=== PATIENT | female | born 1975 | race Caucasian/White ===

== ENCOUNTER 2021-10-01 15:36 | Outpatient (REF) | payer BC, SELFPAY ==
[2021-10-07 21:07] LABS: HPV mRNA E6/E7 Not Detected (Not Detected)
== END 2021-10-01 15:37 | disposition home or self-care (01) ==
LOC: HO.LAB 15:36
PROVIDERS: Visit Provider Internal Medicine
DX: Z12.4 Encounter for screening for malignant neoplasm of cervix (principal); Z11.51 Encounter for screening for human papillomavirus (HPV)
CPT/HCPCS: 87624; 88142

== ENCOUNTER 2021-10-08 08:43 | Outpatient (REF) | payer BC, SELFPAY ==
--- NOTE | ~2021-10-08 | XR_ITS ---
EXAMINATION: XR CHEST CLINICAL INFORMATION: Cough COMPARISON: None TECHNIQUE: 2 views of the chest were obtained. FINDINGS: No significant abnormality is noted involving the heart, lungs, mediastinum, bony thorax or soft tissues. XR/XR chest 2V IMPRESSION: No acute disease.
[2021-10-08 11:11] LABS: Hematocrit 33.8 % (37.0-47.0); Mean Corpuscular HGB Conc 29.6 g/dl (31.0-35.0); Mean Corpuscular Hemoglobin 22.4 pg (27.0-33.0); Mean Corpuscular Volume 75.8 fL (80.0-98.0); Mean Platelet Volume 9.1 fL (9.4-12.3); Platelet Count 401 X10*3/uL (160-400); Red Blood Count 4.46 X10*6/uL (4.20-5.50); Red Cell Distribution Width 18.6 % (11.0-16.0); White Blood Count 5.2 X10*3/uL (4.8-10.8)
[2021-10-08 11:12] LABS: Appearance Urine CLEAR; Color Urine YELLOW; Glucose Urine UA NEG (NEG); Leukocyte Esterase Urine NEG (NEG); Nitrite Urine NEG (NEG); Specific Gravity - Urine 1.015 (1.005-1.025); Urine Blood NEG (NEG); Urine Ketones NEG (NEG); Urine Protein NEG (NEG-TRACE)
[2021-10-08 11:50] LABS: Bacteria Urine TRACE /LPF; RBC Urine 0 /HPF (0); Squamous Epithelial Cell Urine 2+ /LPF; WBC Urine 0 /HPF (0-4)
[2021-10-08 11:51] LABS: Amorphous Sediment Urine 2+ /LPF
[2021-10-08 11:57] LABS: Alanine Aminotransferase 16 U/L (0-31); Albumin Level 4.2 g/dL (3.5-5.0); Alkaline Phosphatase 49 U/L (39-117); Anion Gap 9 (12-20); Aspartate Amino Transferase 23 U/L (5-31); Bilirubin Total 0.5 mg/dL (0.0-1.0); Blood Urea Nitrogen 13 mg/dL (9-16); Calcium 9.7 mg/dL (8.4-10.2); Carbon Dioxide 26 mmol/L (22-29); Chloride 106 mmol/L (96-108); Cholesterol 158 mg/dL; Estimated Glomerular Filt Rate > 60; Glucose Fasting 153 mg/dL (60-99); HDL Cholesterol 63 mg/dL; LDL Cholesterol Calculated 82 mg/dl; Potassium 5.2 mmol/L (3.3-5.1); Sodium 136 mmol/L (135-145); Total Protein 7.1 g/dL (6.5-8.0); Triglycerides 69 mg/dL
== END 2021-10-08 08:44 | disposition home or self-care (01) ==
LOC: HO.HMGCX 08:43
PROVIDERS: PCP Internal Medicine; Visit Provider Internal Medicine
DX: Z00.00 Encounter for general adult medical examination without abnormal findings (principal); R05.9 Cough, unspecified
CPT/HCPCS: 36415; 71046; 80053; 80061; 81001; 84443; 85027

== ENCOUNTER 2021-10-15 07:08 | Outpatient (REF) | payer BC, SELFPAY ==
[2021-10-15 12:00] LABS: Estimated Average Glucose 120 mg/dL; Hemoglobin A1c % 5.8 %
[2021-10-15 12:16] LABS: Iron 34 mcg/dL (30-160); Percent Iron Saturation 7 % (15-50); Total Iron Binding Capacity 492 mcg/dL (228-428); Unsaturated Iron Binding 458 ug/dL
== END 2021-10-15 07:09 | disposition home or self-care (01) ==
LOC: HO.HMGCLDS 07:08
PROVIDERS: Visit Provider Internal Medicine
DX: D64.9 Anemia, unspecified (principal); R73.9 Hyperglycemia, unspecified
CPT/HCPCS: 36415; 83036; 83540

== ENCOUNTER 2021-11-18 08:49 | Outpatient (REF) | payer BC, SELFPAY ==
--- NOTE | ~2021-11-18 | US_ITS ---
EXAMINATION: US RETROPERITONEAL LIMITED (RENAL ONLY) CLINICAL INFORMATION: Calculus of kidney. COMPARISON: Chest radiographs 10/08/2021. TECHNIQUE: Real-time imaging of the kidneys. FINDINGS: RIGHT KIDNEY: 10.9 x 3.7 x 5.7 cm (SAG x AP x TRV). The kidney is normal in size, contour, and echogenicity. Renal cortical thickness is normal. No visible calculi or focal parenchymal lesions. No hydronephrosis. LEFT KIDNEY: 9.7 x 5.2 x 4.7 cm (SAG x AP x TRV). The kidney is normal in size, contour, and echogenicity. Renal cortical thickness is normal. No focal parenchymal lesions or hydronephrosis. There is a punctate specular echo lower pole 03 cm but without posterior shadowing or twinkling artifact on color Doppler to confirm nonobstructing calculus. US/US renal BI IMPRESSION: -No hydronephrosis or caliectasis. -No definite calculi by strict ultrasound criteria.
== END 2021-11-18 08:50 | disposition home or self-care (01) ==
LOC: HO.HMGCX 08:49
PROVIDERS: PCP Internal Medicine; Visit Provider Internal Medicine
DX: N20.0 Calculus of kidney (principal)
CPT/HCPCS: 76775

== ENCOUNTER 2022-06-17 14:47 | Outpatient (REF) | payer BC, SELFPAY ==
[2022-06-17 16:41] LABS: MANUAL DIFF FLAG NO
[2022-06-17 16:49] LABS: Basophils Percent Auto 0.5 % (0-2); Eosinophils Absolute Auto 0.1 X10*3/uL (0.0-0.4); Hematocrit 43.1 % (37.0-47.0); Hemoglobin 14.3 g/dl (12.0-16.0); Imm Gran Abs Auto 0.03 X10*3/uL (0.00-0.03); Imm Gran Pct Auto 0.4 % (0.0-0.4); Lymphocytes Absolute Auto 1.1 X10*3/uL (1.2-4.9); Lymphocytes Percent Auto 12.9 % (20-40); Mean Corpuscular HGB Conc 33.2 g/dl (31.0-35.0); Mean Corpuscular Hemoglobin 32.2 pg (27.0-33.0); Mean Corpuscular Volume 97.1 fL (80.0-98.0); Mean Platelet Volume 8.8 fL (9.4-12.3); Monocytes Absolute Auto 0.7 X10*3/uL (0.1-1.2); Neutrophils Absolute Auto 6.2 x10*3/uL (2.0-8.3); Neutrophils Percent Auto 76.2 % (45-73); Platelet Count 350 X10*3/uL (160-400); Red Blood Count 4.44 X10*6/uL (4.20-5.50); Red Cell Distribution Width 12.2 % (11.0-16.0); White Blood Count 8.1 X10*3/uL (4.8-10.8)
[2022-06-17 16:52] LABS: Estimated Average Glucose 120 mg/dL; Hemoglobin A1C 149.1028 umol/L; Hemoglobin A1c % 5.8 %
[2022-06-17 16:54] LABS: Alanine Aminotransferase 19 U/L (0-31); Albumin Level 4.6 g/dL (3.5-5.0); Alkaline Phosphatase 59 U/L (39-117); Anion Gap 16 (12-20); Aspartate Amino Transferase 24 U/L (5-31); Bilirubin Total 0.4 mg/dL (0.0-1.0); Blood Urea Nitrogen 12 mg/dL (9-16); Calcium 9.6 mg/dL (8.4-10.2); Carbon Dioxide 22 mmol/L (22-29); Chloride 106 mmol/L (96-108); Estimated Glomerular Filt Rate > 60; Glucose Random 82 mg/dL (60-115); Iron 94 mcg/dL (30-160); Percent Iron Saturation 22 % (15-50); Potassium 5.1 mmol/L (3.3-5.1); Sodium 139 mmol/L (135-145); Total Iron Binding Capacity 429 mcg/dL (228-428); Total Protein 7.6 g/dL (6.5-8.0); Unsaturated Iron Binding 335 ug/dL
== END 2022-06-17 14:48 | disposition home or self-care (01) ==
LOC: HO.HMGCLDS 14:47
PROVIDERS: PCP Internal Medicine; Visit Provider Internal Medicine
DX: D64.9 Anemia, unspecified (principal); R73.9 Hyperglycemia, unspecified
CPT/HCPCS: 36415; 80053; 83036; 83540; 85025

== ENCOUNTER 2023-05-02 11:53 | Outpatient (AMB) | payer BC, SELFPAY ==
[2023-05-02 11:55] VITALS: BP 104/66; PULSE 93; O2SAT 99; BMI 21.1
--- NOTE | 2023-05-02 11:55 | A.OFFPC_ITS ---
Vital Signs 05/02/23 11:55 Height 5 ft Weight 108 lb BMI 21.1 BP 104/66 Blood Pressure Location Lt brachial Position Sitting Pulse 93 Pulse Source Pulse Oximeter Pulse Oximetry (%) 99 Oxygen Delivery Method Room Air Intake Visit Reasons: Hospital follow up Intake Note: Pt is here today for a ER follow up visit. Allergies No Known Allergies Allergy (Verified 05/02/23 11:58) Medication List - Last Reconciled 05/02/23 by Aparna Forde MD No Known Home Meds Tobacco use date assessed: 05/02/23 Dental Screening Dental Screen Date: 05/02/23 Did you have a dental visit in the last 12 months?: Yes Did you have a dental problem in the last 6 months where you did not have access to dental care?: No Was dental information given to patient?: Patient has dentist HPI Hospital follow up HPI Details Patient presents for the follow-up of ER visit to [facility] for panic attack. Patient reports having increased stress at work and complains of insomnia and anxiety. She denies suicidal ideation. Pt tried counseling in the past which was unsuccessful [facility] Medical History Asthma Anemia Hyperglycemia Cough Nephrolithiasis Annual physical exam Surgical History Hx of eye surgery Family History Mother Heart problem Father No problems noted. Social History Housing: House Patient Tobacco Use Status: Never used Tobacco e-Cigarette/Vaping Use: Never Used Current occupational status: employed Cognitive needs: No Hearing needs: No Vision needs: Yes Questionnaire Thrive Questionnaire Date Thrive assessed: 10/01/21 AUDIT C Alcohol Use Questionnaire (AUDIT-C) 1. How often do you have a drink containing alcohol?: Never 3. How often do you have six or more drinks on one occasion?: Never Total Score: 0 Review of Systems Const All systems reviewed & are unremarkable except as noted in HPI and below Reports no additional complaints Eyes Reports no additional complaints ENT Reports no additional complaints Card Reports no additional complaints Resp Reports no additional complaints GI Reports no additional complaints Physical exam (Primary Care) Vital Signs: Last Vital Signs Pulse 93 05/02/23 11:55 BP 104/66 05/02/23 11:55 Pulse Ox 99 05/02/23 11:55 Oxygen Delivery Method Room Air 05/02/23 11:55 BMI result Body Mass Index 21.1 Tobacco/Smoking Status: Tobacco use Status Tobacco use date assessed 05/02/23 05/02/23 12:02 Patient Tobacco Use Status Never used Tobacco 05/02/23 12:02 e-Cigarette/Vaping Use Never Used 05/02/23 11:55 Thrive Assessment: Date of Thrive Assessment Date Thrive assessed 10/01/21 05/02/23 11:55 Const General: no acute distress HENMT General nose exam: Normal external nose present Resp Effort & Inspection: normal respiratory effort Auscultation: clear to auscultation bilaterally Cardio Rhythm: regular rhythm Heart sounds: S1 normal heart sound present and S2 normal heart sound present Assessment and Plan Assessment & Plan (1) Anxiety: Code(s): F41.9 - Anxiety disorder, unspecified Plan: start Zoloft 25 mg Medications: New sertraline 25 mg PO DAILY 30 tabs 3RF Coding Level of Care Code Est Pt Level 3 (55932) Diagnoses Anxiety F41.9
== END 2023-05-02 12:32 | disposition home or self-care (01) ==
PROVIDERS: PCP Internal Medicine; Visit Provider Internal Medicine
DX: F41.9 Anxiety disorder, unspecified (principal)
CPT/HCPCS: 99213

== ENCOUNTER 2024-05-15 08:51 | Outpatient (AMB) | payer BC, SELFPAY ==
[2024-05-15 08:52] VITALS: BP 108/76; PULSE 73; O2SAT 100; BMI 21.1
--- NOTE | 2024-05-15 08:52 | A.OFFPC_ITS ---
Vital Signs 05/15/24 08:52 Height 5 ft Weight 108 lb BMI 21.1 BP 108/76 Blood Pressure Location Lt brachial Position Sitting Pulse 73 Pulse Source Pulse Oximeter Pulse Oximetry (%) 100 Oxygen Delivery Method Room Air Intake Visit Reasons: High BP, tiredness Intake Note: Pt is here today for a sick visit. Pt c/o elevated BP and feeling tired. Pt states that she has BP machine at home and her BP was in 160s over 90s. Allergies No Known Allergies Allergy (Verified 05/15/24 09:00) Medication List - Last Reconciled 05/15/24 by Aparna Forde MD No Known Home Meds Tobacco use date assessed: 05/15/24 Dental Screening Dental Screen Date: 05/15/24 Did you have a dental visit in the last 12 months?: Yes Did you have a dental problem in the last 6 months where you did not have access to dental care?: No Was dental information given to patient?: Patient has dentist HPI High BP, tiredness HPI Details Patient presents complaining of feeling tired, sad, depressed and angry most days of the week for the last 3 months. She denies insomnia or suicide ideation but reports decreased appetite. Patient has been under lot of stress at home and at work. [facility] Medical History Asthma Anemia Hyperglycemia Cough Nephrolithiasis Annual physical exam Surgical History Hx of eye surgery Family History Mother Heart problem Father No problems noted. Social History Housing: House Patient Tobacco Use Status: Never used Tobacco e-Cigarette/Vaping Use: Never Used service: No Current occupational status: employed Cognitive needs: No Hearing needs: No Vision needs: Yes Questionnaire PHQ-9 Over the last 2 weeks, how often have you been bothered by any of the following problems? 1. Little interest or pleasure in doing things: not at all 2. Feeling down, depressed, or hopeless: not at all 3. Trouble falling or staying asleep, or sleeping too much: not at all 4. Feeling tired or having little energy: nearly every day 5. Poor appetite or overeating: not at all 6. Feeling bad about yourself - or that you are a failure or have let yourself or your family down: not at all 7. Trouble concentrating on things, such as reading the newspaper or watching television: several days 8. Moving or speaking so slowly that other people could have noticed. Or the opposite - being so fidgety or restless that you have been moving around a lot more than usual: not at all 9. Thoughts that you would be better off or of hurting yourself in some way: not at all Total score: 4 Depression Screening Interpretation: Negative Depression Screening Done: Yes [id number] - PHQ-9 Billing: Yes Source: Developed by Drs. Herb Miranda, Lore Naylor, Beto Charles and colleagues, with an educational negrita from [employer]. Thrive Questionnaire Date Thrive assessed: 05/15/24 I am a: Patient What is your living situation today?: I have a steady place to live Within the past 12 months, did the food you bought not last and you didn't have the money to get more?: Never true Within the past 12 months, did you worry whether your food would run out before you got money to buy more?: Never true Do you have trouble paying for medicines?: No Do you have trouble getting transportation to medical appointments?: No Do you have trouble paying your heating and electricity bill?: No Do you have trouble taking care of your child, family member or friend?: No Do you have trouble with day-to-day activities such as bathing, preparing meals, shopping, managing finances, etc.?: No Are you currently unemployed and looking for a job?: No Are you interested in more education?: No Please select the resources that you would like help with: None THRIVE Score: 0 AUDIT C Alcohol Use Questionnaire (AUDIT-C) 1. How often do you have a drink containing alcohol?: Monthly or less 2. How many drinks containing alcohol do you have on a typical day when you are drinking?: 1 or 2 3. How often do you have six or more drinks on one occasion?: Never Total Score: 1 RUBEN-7 AMB Questionnaire RUBEN-7 Date RUBEN - 7 assessed: 05/15/24 Feeling nervous, anxious, or on edge: 0 = Not at all Not being able to stop or control worryin = Not at all Worrying too much about different things: 0 = Not at all Trouble relaxin = Several days Being so restless that it is hard to sit still: 0 = Not at all Becoming easily annoyed or irritable: 0 = Not at all Feeling afraid as if something awful might happen: 0 = Not at all Total RUBEN-7 score (0-4 normal; 5-9 mild; 10-14 moderate; 15-21 severe): 1 Source: Developed by Drs. Herb Miranda, Lore Naylor, Beto Charles and colleagues, with an educational negrita from [employer]. RUBEN-7 Assessment Billing RUBEN-7 Assessment Tool: RUBEN-7 Assessment 69000 Review of Systems Const All systems reviewed & are unremarkable except as noted in HPI and below Eyes Reports no additional complaints ENT Reports no additional complaints Card Reports no additional complaints Resp Reports no additional complaints GI Reports no additional complaints Physical exam (Primary Care) Vital Signs: Last Vital Signs Pulse 73 05/15/24 08:52 BP 108/76 05/15/24 08:52 Pulse Ox 100 05/15/24 08:52 Oxygen Delivery Method Room Air 05/15/24 08:52 BMI result Body Mass Index 21.1 Tobacco/Smoking Status: Tobacco use Status Tobacco use date assessed 05/15/24 05/15/24 09:03 Patient Tobacco Use Status Never used Tobacco 05/15/24 09:03 e-Cigarette/Vaping Use Never Used 05/15/24 08:52 PHQ-9: PHQ-9 Score PHQ-9: Total score 4 05/15/24 09:21 Depression Screening Interpretation: Negative Thrive Assessment: Date of Thrive Assessment Date Thrive assessed 05/15/24 05/15/24 09:03 Const General: no acute distress HENMT Head: Yes normal to inspection Eyes General: appearance normal, both eyes and all related structures Neck Neck: Yes no lymphadenopathy and Yes supple Resp Effort & Inspection: normal respiratory effort Auscultation: clear to auscultation bilaterally Cardio Rhythm: regular rhythm Heart sounds: S1 normal heart sound present and S2 normal heart sound present GI Inspection: Yes normal to inspection Palpation (GI): Soft to palpation Percussion: Yes normal to percussion Auscultation: normal bowel sounds Coding Level of Care Code Est Pt Level 3 (21012) Diagnoses Annual physical exam Z00.00 Hyperglycemia R73.9 Anemia D64.9 Anxiety F41.9 Additional Codes RUBEN-7 Assessment Billing - RUBEN-7 Assessment Tool: RUBEN-7 Assessment 55461 ([id number]) Assessment & Plan Assessment & Plan (1) Annual physical exam: Code(s): Z00.00 - Encounter for general adult medical examination without abnormal findings Category: Medical Plan: Patient will return for a physical in 3 months she will have a fasting blood work today (2) Hyperglycemia: Code(s): R73.9 - Hyperglycemia, unspecified Category: Medical Plan: Check A1c and comprehensive panel (3) Anemia: Code(s): D64.9 - Anemia, unspecified Category: Medical Plan: check CBC and Iron (4) Anxiety: Code(s): F41.9 - Anxiety disorder, unspecified Category: Medical Plan: Increasing physical activity mindfulness discussed with the patient sertraline 25 mg for the 1st week then increase to 50 mg will be started. Patient declined counseling. Follow-up in 3 months Orders: Orders Lipid Panel Today D64.9 - Anemia, unspecified, R73.9 - Hyperglycemia, unspecified, Z00.00 - Encounter for general adult medical examination without abnormal findings Hemoglobin A1c Today D64.9 - Anemia, unspecified, R73.9 - Hyperglycemia, unspecified, Z00.00 - Encounter for general adult medical examination without abnormal findings Comprehensive [place]. Panel Fast Today D64.9 - Anemia, unspecified, R73.9 - Hyperglycemia, unspecified, Z00.00 - Encounter for general adult medical examination without abnormal findings Complete Blood Count Auto Diff Today D64.9 - Anemia, unspecified, R73.9 - Hyperglycemia, unspecified, Z00.00 - Encounter for general adult medical examination without abnormal findings TSH reflex Free T4 Today D64.9 - Anemia, unspecified, R73.9 - Hyperglycemia, unspecified, Z00.00 - Encounter for general adult medical examination without abnormal findings UA w Microscopic Today D64.9 - Anemia, unspecified, R73.9 - Hyperglycemia, unspecified, Z00.00 - Encounter for general adult medical examination without abnormal findings Medications: New sertraline 1/2 tabl qd for 1 week, then 1 tabl qd 50 mg PO DAILY 90 tabs 0RF
== END 2024-05-15 10:22 | disposition home or self-care (01) ==
PROVIDERS: PCP Internal Medicine; Visit Provider Internal Medicine
DX: Z00.00 Encounter for general adult medical examination without abnormal findings (principal); R73.9 Hyperglycemia, unspecified; D64.9 Anemia, unspecified; F41.9 Anxiety disorder, unspecified

== ENCOUNTER → 2024-05-15 08:51 | Outpatient (BNVA) | payer BC, SELFPAY | PROVIDERS: PCP Internal Medicine; Visit Provider Internal Medicine ==

== ENCOUNTER 2024-05-15 09:30 | Outpatient (REF) | payer BC, SELFPAY ==
[2024-05-15 13:08] LABS: MANUAL DIFF FLAG NO
[2024-05-15 13:12] LABS: Appearance Urine Clear; Color Urine Yellow; Glucose Urine UA >=1000 mg/dL (Negative); Leukocyte Esterase Urine Negative (Negative); Nitrite Urine Negative (Negative); Specific Gravity - Urine >= 1.030 (1.005-1.025); UMIC TRIGGER UA YES; Urine Blood Negative (Negative); Urine Ketones Trace mg/dL (Negative); Urine Protein Negative (Neg-Trace)
[2024-05-15 13:15] LABS: Bacteria Urine None Seen (None Seen); Hyaline Casts Urine 0-2 /LPF (0-2); RBC Urine 0-2 /HPF (0-2); Squamous Epithelial Cell Urine 0-2 /HPF (0-2); WBC Urine 0-5 /HPF (0-5)
[2024-05-15 13:26] LABS: Basophils Absolute Auto 0.1 X10*3/uL (0.0-0.2); Basophils Percent Auto 1.1 % (0-2); Eosinophils Absolute Auto 0.1 X10*3/uL (0.0-0.4); Eosinophils Percent Auto 2.8 % (0-4); Hematocrit 38.9 % (37.0-47.0); Hemoglobin 12.8 g/dl (12.0-16.0); Imm Gran Abs Auto 0.02 X10*3/uL (0.00-0.03); Imm Gran Pct Auto 0.4 % (0.0-0.4); Lymphocytes Absolute Auto 1.1 X10*3/uL (1.2-4.9); Lymphocytes Percent Auto 22.7 % (20-40); Mean Corpuscular HGB Conc 32.9 g/dl (31.0-35.0); Mean Corpuscular Hemoglobin 31.1 pg (27.0-33.0); Mean Corpuscular Volume 94.4 fL (80.0-98.0); Monocytes Absolute Auto 0.5 X10*3/uL (0.1-1.2); Monocytes Percent Auto 11.2 % (2-11); Neutrophils Absolute Auto 2.9 x10*3/uL (2.0-8.3); Neutrophils Percent Auto 61.8 % (45-73); Platelet Count 316 X10*3/uL (160-400); Red Blood Count 4.12 X10*6/uL (4.20-5.50); Red Cell Distribution Width 12.9 % (11.0-16.0); White Blood Count 4.7 X10*3/uL (4.8-10.8)
[2024-05-15 14:06] LABS: Alanine Aminotransferase 19 U/L (0-31); Albumin Level 4.1 g/dL (3.5-5.0); Alkaline Phosphatase 57 U/L (39-117); Anion Gap 10 (12-20); Aspartate Amino Transferase 18 U/L (5-31); Bilirubin Total 0.5 mg/dL (0.0-1.0); Blood Urea Nitrogen 12 mg/dL (9-16); Carbon Dioxide 25 mmol/L (22-29); Chloride 104 mmol/L (96-108); Cholesterol 157 mg/dL (<200); Estimated Glomerular Filt Rate > 60; Glucose Fasting 299 mg/dL (60-99); HDL Cholesterol 82 mg/dL (>40); LDL Cholesterol Calculated 65 mg/dL (<100); Potassium 4.6 mmol/L (3.3-5.1); Sodium 134 mmol/L (135-145); TSH reflex Free T4 4.15 uIU/mL (0.32-4.0); Total Protein 6.9 g/dL (6.5-8.0); Triglycerides 52 mg/dL (<150)
[2024-05-15 14:07] LABS: Estimated Average Glucose 163 mg/dL; Hemoglobin A1C 225.1104 umol/L; Hemoglobin A1c % 7.3 % (<6.0); Total Hemoglobin (HGBA1C) 4019.6354 umol/L
[2024-05-15 14:47] LABS: Free T4 (Free Thyroxine) 0.86 ng/dL (0.71-1.85)
== END 2024-05-15 09:31 | disposition home or self-care (01) ==
LOC: HO.HMGCLDS 09:30
PROVIDERS: PCP Internal Medicine; Visit Provider Internal Medicine
DX: Z00.00 Encounter for general adult medical examination without abnormal findings (principal); R73.9 Hyperglycemia, unspecified; D64.9 Anemia, unspecified; Z13.31 Encounter for screening for depression; Z13.220 Encounter for screening for lipoid disorders
CPT/HCPCS: 36415; 80053; 80061; 81001; 83036; 84439; 84443; 85025; 96127

== ENCOUNTER 2024-05-22 13:05 | Outpatient (AMB) | payer BC, SELFPAY ==
[2024-05-22 13:06] VITALS: BP 102/66; PULSE 89; O2SAT 98; BMI 21.1
--- NOTE | 2024-05-22 13:06 | MHC.PC.OV ---
Vital Signs 05/22/24 13:06 Height 5 ft Weight 108 lb BMI 21.1 BP 102/66 Blood Pressure Location Lt brachial Position Sitting Pulse 89 Pulse Source Pulse Oximeter Pulse Oximetry (%) 98 Oxygen Delivery Method Room Air Intake Visit Reasons: Follow up on labs Intake Note: Pt is here today for a follow up visit on lab results new DM dignosis. Allergies No Known Allergies Allergy (Verified 05/22/24 13:07) Medication List - Last Reconciled 05/22/24 by Aparna Forde MD sertraline 50 mg PO DAILY Tobacco use date assessed: 05/15/24 Dental Screening Dental Screen Date: 05/15/24 HPI Follow up on labs HPI Details Patient presents for the follow-up on newly diagnosed diabetes. She denies polyuria polydipsia but reports episodes of cold sweats and lightheadedness. Patient has been eating a lot of fast foods and sweets. [facility] Medical History Asthma Anemia Hyperglycemia Cough Nephrolithiasis Annual physical exam Surgical History Hx of eye surgery Family History Mother Heart problem Father No problems noted. Social History Housing: House Patient Tobacco Use Status: Never used Tobacco e-Cigarette/Vaping Use: Never Used service: No Current occupational status: employed Cognitive needs: No Hearing needs: No Vision needs: Yes Questionnaire Thrive Questionnaire Date Thrive assessed: 05/15/24 RUBEN-7 AMB Questionnaire RUBEN-7 Date RUBEN - 7 assessed: 05/15/24 Source: Developed by Drs. Herb Miranda, Lore Naylor, Beto Charles and colleagues, with an educational negrita from [employer]. Review of Systems Const All systems reviewed & are unremarkable except as noted in HPI and below Card Reports no additional complaints Resp Reports no additional complaints GI Reports no additional complaints Reports no additional complaints Physical exam (Primary Care) Vital Signs: Last Vital Signs Pulse 89 05/22/24 13:06 BP 102/66 05/22/24 13:06 Pulse Ox 98 05/22/24 13:06 Oxygen Delivery Method Room Air 05/22/24 13:06 BMI result Body Mass Index 21.1 Tobacco/Smoking Status: Tobacco use Status Tobacco use date assessed 05/15/24 05/22/24 13:07 Patient Tobacco Use Status Never used Tobacco 05/22/24 13:07 e-Cigarette/Vaping Use Never Used 05/22/24 13:07 Thrive Assessment: Date of Thrive Assessment Date Thrive assessed 05/15/24 05/22/24 13:07 Const General: no acute distress Neck Neck: Yes supple Resp Effort & Inspection: normal respiratory effort Auscultation: clear to auscultation bilaterally Cardio Rhythm: regular rhythm Heart sounds: S1 normal heart sound present and S2 normal heart sound present GI Inspection: Yes normal to inspection Coding Level of Care Code Est Pt Level 4 (58479) Diagnoses DM type 2 (diabetes mellitus, type 2) E11.9 Anxiety F41.9 Assessment & Plan Assessment & Plan (1) DM type 2 (diabetes mellitus, type 2): Code(s): E11.9 - Type 2 diabetes mellitus without complications Category: Medical Plan: A1c is 7.2, ADA diet regular physical activity discussed with the patient. Metformin 750 mg will be started and patient was advised to start monitoring her blood glucose regularly. She will follow-up in 3 months with a fasting labs. (2) Anxiety: Code(s): F41.9 - Anxiety disorder, unspecified Category: Medical Plan: Continue sertraline Orders: Orders Hemoglobin A1c 3 Months E11.9 - Type 2 diabetes mellitus without complications TSH reflex Free T4 3 Months E11.9 - Type 2 diabetes mellitus without complications Comprehensive [place]. Panel Fast 3 Months E11.9 - Type 2 diabetes mellitus without complications Medications: New blood-glucose meter (OneTouch Ultra2 Meter) As directed 1 ea 0RF metformin ER 750 mg PO DAILY 90 tabs 1RF OneTouch Verio test strips (blood sugar diagnostic) 1 qd 100 ea 2RF NS
== END 2024-05-22 14:22 | disposition home or self-care (01) ==
PROVIDERS: PCP Internal Medicine; Visit Provider Internal Medicine
DX: E11.9 Type 2 diabetes mellitus without complications (principal); F41.9 Anxiety disorder, unspecified

== ENCOUNTER → 2024-05-22 13:05 | Outpatient (BNVA) | payer BC, SELFPAY | PROVIDERS: PCP Internal Medicine; Visit Provider Internal Medicine ==

== ENCOUNTER 2024-07-16 13:39 | Outpatient (AMB) | payer BC, SELFPAY ==
--- NOTE | 2024-07-16 13:42 | A.OFFPC_ITS ---
Vital Signs 07/16/24 13:43 Height 5 ft Weight 105 lb BMI 20.5 BP 122/78 Blood Pressure Location Lt brachial Position Sitting Pulse 85 Pulse Source Pulse Oximeter Pulse Oximetry (%) 98 Oxygen Delivery Method Room Air Intake Visit Reasons: Pre op cataract surgery 07/23/24 Dr. Cedillo Intake Note: Pt is here today for a pre op visit. Pt is having cataract surgery on 07/23/24 a nd 07/30/24. Allergies No Known Allergies Allergy (Verified 07/16/24 13:48) Medication List - Last Reconciled 07/16/24 by Aparna Forde MD blood-glucose meter (OneTouch Verio Flex Meter) As directed metformin ER 750 mg PO BID OneTouch Delica Plus Lancet (lancets) Test blood sugar once a day NS OneTouch Verio test strips (blood sugar diagnostic) Test blood sugar once a day NS sertraline 50 mg PO DAILY Tobacco use date assessed: 07/16/24 Dental Screening Dental Screen Date: 05/15/24 HPI Pre op cataract surgery 07/23/24 Dr. Cedillo HPI Details Pt presents for preop for cataract surgery. Pt reports fasting glucose 150-200 and has been following ADA diet and taking metformin. [facility] Medical History Asthma Anemia Hyperglycemia Cough Nephrolithiasis Annual physical exam Surgical History Hx of eye surgery Family History Mother Heart problem Father No problems noted. Social History Housing: House Patient Tobacco Use Status: Never used Tobacco e-Cigarette/Vaping Use: Never Used service: No Current occupational status: employed Cognitive needs: No Hearing needs: No Vision needs: Yes Questionnaire PHQ-9 Over the last 2 weeks, how often have you been bothered by any of the following problems? 1. Little interest or pleasure in doing things: not at all 2. Feeling down, depressed, or hopeless: not at all 3. Trouble falling or staying asleep, or sleeping too much: not at all 4. Feeling tired or having little energy: not at all 5. Poor appetite or overeating: not at all 6. Feeling bad about yourself - or that you are a failure or have let yourself or your family down: not at all 7. Trouble concentrating on things, such as reading the newspaper or watching television: not at all 8. Moving or speaking so slowly that other people could have noticed. Or the opposite - being so fidgety or restless that you have been moving around a lot more than usual: not at all 9. Thoughts that you would be better off or of hurting yourself in some way: not at all Total score: 0 Depression Screening Interpretation: Negative Depression Screening Done: Yes 39415 - PHQ-9 Billing: Yes Source: Developed by Drs. Herb Miranda, Lore Naylor, Beto Charles and colleagues, with an educational negrita from [employer]. Thrive Questionnaire Date Thrive assessed: 05/15/24 I am a: Patient What is your living situation today?: I choose not to answer this question Within the past 12 months, did the food you bought not last and you didn't have the money to get more?: I choose not to answer this question Within the past 12 months, did you worry whether your food would run out before you got money to buy more?: I choose not to answer this question Do you have trouble paying for medicines?: No Do you have trouble getting transportation to medical appointments?: No Do you have trouble paying your heating and electricity bill?: No Do you have trouble taking care of your child, family member or friend?: No Do you have trouble with day-to-day activities such as bathing, preparing meals, shopping, managing finances, etc.?: No Are you currently unemployed and looking for a job?: No Are you interested in more education?: No Please select the resources that you would like help with: None Currently or been in a relationship where the following occur: I choose not to answer THRIVE Score: 0 AUDIT C Alcohol Use Questionnaire (AUDIT-C) 1. How often do you have a drink containing alcohol?: Never Total Score: 0 RUBEN-7 AMB Questionnaire RUBEN-7 Date RUBEN - 7 assessed: 05/15/24 Feeling nervous, anxious, or on edge: 0 = Not at all Not being able to stop or control worryin = Not at all Worrying too much about different things: 0 = Not at all Trouble relaxin = Not at all Being so restless that it is hard to sit still: 0 = Not at all Becoming easily annoyed or irritable: 0 = Not at all Feeling afraid as if something awful might happen: 0 = Not at all Total RUBEN-7 score (0-4 normal; 5-9 mild; 10-14 moderate; 15-21 severe): 0 Source: Developed by Drs. Herb Miranda, Lore Naylor, Beto Charles and colleagues, with an educational negrita from [employer]. Review of Systems Const All systems reviewed & are unremarkable except as noted in HPI and below Eyes Reports no additional complaints ENT Reports no additional complaints Card Reports no additional complaints Resp Reports no additional complaints GI Reports no additional complaints Reports no additional complaints Physical exam (Primary Care) Vital Signs: Last Vital Signs Pulse 85 07/16/24 13:43 BP 122/78 07/16/24 13:43 Pulse Ox 98 07/16/24 13:43 Oxygen Delivery Method Room Air 07/16/24 13:43 BMI result Body Mass Index 20.5 Tobacco/Smoking Status: Tobacco use Status Tobacco use date assessed 07/16/24 07/16/24 13:47 Patient Tobacco Use Status Never used Tobacco 07/16/24 13:47 e-Cigarette/Vaping Use Never Used 07/16/24 13:47 PHQ-9: PHQ-9 Score PHQ-9: Total score 0 07/16/24 14:23 Depression Screening Interpretation: Negative Thrive Assessment: Date of Thrive Assessment Date Thrive assessed 05/15/24 07/16/24 13:47 Currently or been in a relationship where the following occur: I choose not to answer Const General: no acute distress HENMT Head: Yes normal to inspection Ears: hearing grossly normal bilaterally Mouth: Normal oral and palatal mucosa present Throat: Yes posterior oropharynx normal Eyes General: appearance normal, both eyes and all related structures Neck Neck: Yes supple Resp Effort & Inspection: normal respiratory effort Auscultation: clear to auscultation bilaterally Cardio Rhythm: regular rhythm Heart sounds: S1 normal heart sound present and S2 normal heart sound present Results AMB Hemoglobin A1c AMB Hemoglobin A1c 7.1 % Last Edit by HARINDER De La Cruz on 07/16/24 14:2 3 Results Reviewed Results Reviewed: Laboratory Last Values Hgb A1c (Clinic) 7.1 % (4.0-6.0) H 07/16/24 14:13 Coding Level of Care Code Est Pt Level 3 (49623) Diagnoses Cataract H26.9 DM type 2 (diabetes mellitus, type 2) E11.9 Additional Codes PHQ-9 - 29373 - PHQ-9 Billing: Yes ([id number]) Assessment & Plan Assessment & Plan (1) Cataract: Code(s): H26.9 - Unspecified cataract Category: Medical Plan: Patient is medically cleared for cataract surgery (2) DM type 2 (diabetes mellitus, type 2): Code(s): E11.9 - Type 2 diabetes mellitus without complications Category: Medical Plan: A1c today was 7.1, increase metformin to 750 mg twice a day ADA diet regular exercise discussed with the patient she will follow-up in 6 weeks with a fasting labs before Orders: Orders AMB Hemoglobin A1c Today Z13.9 - Encounter for screening, unspecified Medications: Changed From metformin ER 750 mg PO DAILY 90 tabs 1RF To metformin ER 750 mg PO BID 180 tabs 1RF Refilled OneTouch Verio test strips (blood sugar diagnostic) Test blood sugar once a day 100 ea 3RF NS E11.9 - Type 2 diabetes mellitus without complications
[2024-07-16 13:43] VITALS: BP 122/78; PULSE 85; O2SAT 98; BMI 20.5
== END 2024-07-16 15:13 | disposition home or self-care (01) ==
PROVIDERS: PCP Internal Medicine; Visit Provider Internal Medicine
DX: H26.9 Unspecified cataract (principal); E11.9 Type 2 diabetes mellitus without complications; Z13.9 Encounter for screening, unspecified

== ENCOUNTER → 2024-07-16 13:39 | Outpatient (BNVA) | payer BC, SELFPAY | PROVIDERS: PCP Internal Medicine; Visit Provider Internal Medicine | DX: Z01.818 Encounter for other preprocedural examination (principal); H26.9 Unspecified cataract; E11.9 Type 2 diabetes mellitus without complications; Z79.84 Long term (current) use of oral hypoglycemic drugs | CPT/HCPCS: 83036; 96127 ==

== ENCOUNTER 2024-08-31 08:27 | Outpatient (REF) | payer BC, SELFPAY ==
[2024-08-31 10:52] LABS: Estimated Average Glucose 154 mg/dL; Hemoglobin A1C 163.5536 umol/L; Total Hemoglobin (HGBA1C) 3100.8165 umol/L
[2024-08-31 13:03] LABS: Alanine Aminotransferase 21 U/L (0-31); Albumin Level 4.3 g/dL (3.5-5.0); Anion Gap 12 (12-20); Aspartate Amino Transferase 27 U/L (5-31); Bilirubin Total 0.2 mg/dL (0.0-1.0); Blood Urea Nitrogen 13 mg/dL (9-16); Calcium 9.1 mg/dL (8.4-10.2); Carbon Dioxide 24 mmol/L (22-29); Chloride 106 mmol/L (96-108); Estimated Glomerular Filt Rate > 60; Glucose Fasting 129 mg/dL (60-99); Potassium 4.2 mmol/L (3.3-5.1); Sodium 138 mmol/L (135-145); Total Protein 7.6 g/dL (6.5-8.0)
[2024-08-31 13:31] LABS: TSH reflex Free T4 3.16 uIU/mL (0.32-4.0)
[2024-08-31 14:19] LABS: Alkaline Phosphatase 62 U/L (39-117)
== END 2024-08-31 08:28 | disposition home or self-care (01) ==
LOC: HO.HMGCLDS 08:27
PROVIDERS: PCP Internal Medicine; Visit Provider Internal Medicine
DX: E11.9 Type 2 diabetes mellitus without complications (principal)
CPT/HCPCS: 36415; 80053; 83036; 84443

== ENCOUNTER 2024-09-03 13:57 | Outpatient (AMB) | payer BC, SELFPAY ==
[2024-09-03 14:11] VITALS: BP 118/74; PULSE 84; TEMP 36.9; O2SAT 98; BMI 20.3
--- NOTE | 2024-09-03 14:11 | MHC.PC.OV ---
Vital Signs 09/03/24 14:11 Height 5 ft Weight 104 lb BMI 20.3 BP 118/74 Blood Pressure Location Lt brachial Position Sitting Pulse 84 Pulse Source Pulse Oximeter Temp 98.4 F Temp Source Oral Pulse Oximetry (%) 98 Oxygen Delivery Method Room Air Intake Visit Reasons: Annual PE Intake Note: Pt is here today for PE. Allergies No Known Allergies Allergy (Verified 07/16/24 13:48) Medication List - Last Reconciled 09/03/24 by Aparna Forde MD blood-glucose meter (OneTouch Verio Flex Meter) As directed metformin ER 750 mg PO BID OneTouch Delica Plus Lancet (lancets) Test blood sugar once a day NS OneTouch Verio test strips (blood sugar diagnostic) Test blood sugar once a day NS sertraline 50 mg PO DAILY Tobacco use date assessed: 09/03/24 Dental Screening Dental Screen Date: 09/03/24 Did you have a dental visit in the last 12 months?: Yes Did you have a dental problem in the last 6 months where you did not have access to dental care?: No Was dental information given to patient?: Patient has dentist HPI Annual PE HPI Details Patient presents for physical. She reports fasting blood glucose between 120 to 200s. Patient reports low blood sugar after taking 1500 mg of metformin, down to 60s. Patient has been taking only 750 mg of metformin daily. FORMERLY [facility], [facility] Medical History (Updated 09/03/24 @ 15:06 by Aparna Forde MD) Asthma Anemia Hyperglycemia Cough Nephrolithiasis Annual physical exam Surgical History Hx of cataract surgery Hx of eye surgery Family History Mother Heart problem Father No problems noted. Social History Housing: House Patient Tobacco Use Status: Never used Tobacco e-Cigarette/Vaping Use: Never Used service: No Current occupational status: employed Cognitive needs: No Hearing needs: No Vision needs: Yes Questionnaire PHQ-9 Over the last 2 weeks, how often have you been bothered by any of the following problems? 1. Little interest or pleasure in doing things: not at all 2. Feeling down, depressed, or hopeless: not at all 3. Trouble falling or staying asleep, or sleeping too much: not at all 4. Feeling tired or having little energy: not at all 5. Poor appetite or overeating: not at all 6. Feeling bad about yourself - or that you are a failure or have let yourself or your family down: not at all 7. Trouble concentrating on things, such as reading the newspaper or watching television: not at all 8. Moving or speaking so slowly that other people could have noticed. Or the opposite - being so fidgety or restless that you have been moving around a lot more than usual: not at all 9. Thoughts that you would be better off or of hurting yourself in some way: not at all Total score: 0 Depression Screening Interpretation: Negative Depression Screening Done: Yes 33531 - PHQ-9 Billing: Yes Source: Developed by Drs. Herb Miranda, Lore Naylor, Beto Charles and colleagues, with an educational negrita from [employer]. Thrive Questionnaire Date Thrive assessed: 09/03/24 I am a: Patient What is your living situation today?: I choose not to answer this question Within the past 12 months, did the food you bought not last and you didn't have the money to get more?: I choose not to answer this question Within the past 12 months, did you worry whether your food would run out before you got money to buy more?: I choose not to answer this question Do you have trouble paying for medicines?: No Do you have trouble getting transportation to medical appointments?: No Do you have trouble paying your heating and electricity bill?: No Do you have trouble taking care of your child, family member or friend?: No Do you have trouble with day-to-day activities such as bathing, preparing meals, shopping, managing finances, etc.?: No Are you currently unemployed and looking for a job?: No Are you interested in more education?: No Please select the resources that you would like help with: None Currently or been in a relationship where the following occur: I choose not to answer THRIVE Score: 0 AUDIT C Alcohol Use Questionnaire (AUDIT-C) 1. How often do you have a drink containing alcohol?: Never 3. How often do you have six or more drinks on one occasion?: Never Total Score: 0 RUBEN-7 AMB Questionnaire RUBEN-7 Date RUBEN - 7 assessed: 09/03/24 Feeling nervous, anxious, or on edge: 0 = Not at all Not being able to stop or control worryin = Not at all Worrying too much about different things: 0 = Not at all Trouble relaxin = Not at all Being so restless that it is hard to sit still: 0 = Not at all Becoming easily annoyed or irritable: 0 = Not at all Feeling afraid as if something awful might happen: 0 = Not at all Total RUBEN-7 score (0-4 normal; 5-9 mild; 10-14 moderate; 15-21 severe): 0 Source: Developed by Drs. Herb Miranda, Lore Naylor, Beto Charles and colleagues, with an educational negrita from [employer]. RUBEN-7 Assessment Billing RUBEN-7 Assessment Tool: RUBEN-7 Assessment 95171 Review of Systems Const All systems reviewed & are unremarkable except as noted in HPI and below Eyes Reports no additional complaints ENT Reports no additional complaints Card Reports no additional complaints Resp Reports no additional complaints GI Reports no additional complaints Reports no additional complaints Physical exam (Primary Care) Vital Signs: Last Vital Signs Temp 98.4 F 09/03/24 14:11 Pulse 84 09/03/24 14:11 BP 118/74 09/03/24 14:11 Pulse Ox 98 09/03/24 14:11 Oxygen Delivery Method Room Air 09/03/24 14:11 BMI result Body Mass Index 20.3 Tobacco/Smoking Status: Tobacco use Status Tobacco use date assessed 09/03/24 09/03/24 14:17 Patient Tobacco Use Status Never used Tobacco 09/03/24 14:12 e-Cigarette/Vaping Use Never Used 09/03/24 14:12 PHQ-9: PHQ-9 Score PHQ-9: Total score 0 09/03/24 14:20 Depression Screening Interpretation: Negative Thrive Assessment: Date of Thrive Assessment Date Thrive assessed 09/03/24 09/03/24 14:20 Currently or been in a relationship where the following occur: I choose not to answer Const General: no acute distress HENMT Head: Yes normal to inspection Face and sinus: Yes normal facial exam Throat: Yes posterior oropharynx normal Neck Neck: Yes no lymphadenopathy and Yes supple Resp Effort & Inspection: normal respiratory effort Auscultation: clear to auscultation bilaterally Cardio Rhythm: regular rhythm Heart sounds: S1 normal heart sound present and S2 normal heart sound present GI Inspection: Yes normal to inspection Palpation (GI): Soft to palpation Percussion: Yes normal to percussion Auscultation: normal bowel sounds Coding Level of Care Code Est Pt Prev Care 40-64y(02512) Diagnoses DM type 2 (diabetes mellitus, type 2) E11.9 Annual physical exam Z00.00 Anxiety F41.9 Additional Codes RUBEN-7 Assessment Billing - RUBEN-7 Assessment Tool: RUBEN-7 Assessment 60285 ([id number]) PHQ-9 - 40374 - PHQ-9 Billing: Yes ([id number]) Assessment & Plan Assessment & Plan (1) DM type 2 (diabetes mellitus, type 2): Code(s): E11.9 - Type 2 diabetes mellitus without complications Category: Medical Plan: A1c is 7.1, ADA diet increase physical activity discussed with the patient. She was advised to increase metformin to 1500 mg per day follow-up in 3 months with a fasting labs before (2) Annual physical exam: Comment: Negative Pap smear 2021 Code(s): Z00.00 - Encounter for general adult medical examination without abnormal findings Category: Medical Plan: Well-balanced diet regular physical activity discussed with the patient. Patient declined mammogram and colonoscopy and had negative Pap smear in 2021 (3) Anxiety: Code(s): F41.9 - Anxiety disorder, unspecified Category: Medical Plan: Continue sertraline Orders: Orders Hemoglobin A1c 3 Months E11.9 - Type 2 diabetes mellitus without complications Lipid Panel 3 Months E11.9 - Type 2 diabetes mellitus without complications Microalbumin, Random (w Creat) 3 Months E11.9 - Type 2 diabetes mellitus without complications Comprehensive [place]. Panel Fast 3 Months E11.9 - Type 2 diabetes mellitus without complications Complete Blood Count Auto Diff 3 Months E11.9 - Type 2 diabetes mellitus without complications Medications: Refilled sertraline 50 mg PO DAILY 90 tabs 3RF metformin ER 750 mg PO BID 180 tabs 2RF
== END 2024-09-03 15:11 | disposition home or self-care (01) ==
PROVIDERS: PCP Internal Medicine; Visit Provider Internal Medicine
DX: E11.9 Type 2 diabetes mellitus without complications (principal); Z00.00 Encounter for general adult medical examination without abnormal findings; F41.9 Anxiety disorder, unspecified

== ENCOUNTER → 2024-09-03 13:57 | Outpatient (BNVA) | payer BC, SELFPAY | PROVIDERS: PCP Internal Medicine; Visit Provider Internal Medicine | DX: Z00.00 Encounter for general adult medical examination without abnormal findings (principal); E11.9 Type 2 diabetes mellitus without complications; F41.9 Anxiety disorder, unspecified; Z79.84 Long term (current) use of oral hypoglycemic drugs; Z79.899 Other long term (current) drug therapy | CPT/HCPCS: 96127 ==

== ENCOUNTER 2025-01-29 06:25 | Outpatient (REF) | payer BC, SELFPAY ==
[2025-01-29 10:07] LABS: MANUAL DIFF FLAG NO
[2025-01-29 10:11] LABS: Basophils Percent Auto 0.7 % (0-2); Eosinophils Absolute Auto 0.2 X10*3/uL (0.0-0.4); Eosinophils Percent Auto 3.6 % (0-4); Hematocrit 40.5 % (37.0-47.0); Hemoglobin 12.6 g/dl (12.0-16.0); Imm Gran Abs Auto 0.01 X10*3/uL (0.00-0.03); Imm Gran Pct Auto 0.2 % (0.0-0.4); Lymphocytes Absolute Auto 1.1 X10*3/uL (1.2-4.9); Lymphocytes Percent Auto 19.5 % (20-40); Mean Corpuscular HGB Conc 31.1 g/dl (31.0-35.0); Mean Corpuscular Hemoglobin 28.3 pg (27.0-33.0); Mean Platelet Volume 9.1 fL (9.4-12.3); Monocytes Absolute Auto 0.6 X10*3/uL (0.1-1.2); Monocytes Percent Auto 9.4 % (2-11); Neutrophils Absolute Auto 3.9 x10*3/uL (2.0-8.3); Neutrophils Percent Auto 66.6 % (45-73); Platelet Count 380 X10*3/uL (160-400); Red Blood Count 4.45 X10*6/uL (4.20-5.50); Red Cell Distribution Width 15.5 % (11.0-16.0); White Blood Count 5.8 X10*3/uL (4.8-10.8)
[2025-01-29 10:14] LABS: Estimated Average Glucose 177 mg/dL; Hemoglobin A1c % 7.8 % (<6.0)
[2025-01-29 10:38] LABS: Alanine Aminotransferase 21 U/L (0-31); Albumin Level 4.2 g/dL (3.5-5.0); Alkaline Phosphatase 47 U/L (39-117); Anion Gap 12 (12-20); Aspartate Amino Transferase 28 U/L (5-31); Bilirubin Total 0.4 mg/dL (0.0-1.0); Blood Urea Nitrogen 13 mg/dL (9-16); Calcium 9.1 mg/dL (8.4-10.2); Carbon Dioxide 25 mmol/L (22-29); Chloride 106 mmol/L (96-108); Cholesterol 150 mg/dL (<200); Estimated Glomerular Filt Rate > 60; Glucose Fasting 253 mg/dL (60-99); HDL Cholesterol 69 mg/dL (>40); LDL Cholesterol Calculated 68 mg/dL (<100); Potassium 4.8 mmol/L (3.3-5.1); Sodium 138 mmol/L (135-145); Total Protein 6.6 g/dL (6.5-8.0); Triglycerides 69 mg/dL (<150)
[2025-01-29 11:16] LABS: Creatinine Urine 74.14 mg/dL; Microalbumin Urine < 5.0 mg/L
== END 2025-01-29 06:26 | disposition home or self-care (01) ==
LOC: HO.HMGCLDS 06:25
PROVIDERS: PCP Internal Medicine; Visit Provider Internal Medicine
DX: E11.9 Type 2 diabetes mellitus without complications (principal)
CPT/HCPCS: 36415; 80053; 80061; 82043; 82570; 83036; 85025

== ENCOUNTER 2025-01-30 12:25 | Outpatient (AMB) | payer BC, SELFPAY ==
--- NOTE | 2025-01-30 12:27 | A.OFFPC_ITS ---
Vital Signs 01/30/25 12:28 Height 5 ft Weight 99 lb BMI 19.3 BP 114/74 Blood Pressure Location Lt brachial Position Sitting Respiration 18 Pulse 94 Pulse Source Pulse Oximeter Temp 98.2 F Temp Source Oral Pulse Oximetry (%) 98 Oxygen Delivery Method Room Air Intake Visit Reasons: Follow up on DM Intake Note: Pt is here today for a follow up visit on DM. Allergies No Known Allergies Allergy (Verified 01/30/25 12:33) Medication List - Last Reconciled 01/30/25 by Aparna Forde MD blood-glucose meter (OneTouch Verio Flex Meter) As directed glipizide ER 5 mg PO DAILY metformin ER 750 mg PO BID OneTouch Delica Plus Lancet (lancets) Test blood sugar once a day NS OneTouch Verio test strips (blood sugar diagnostic) Test blood sugar once a day NS sertraline 50 mg PO DAILY Tobacco use date assessed: 01/30/25 Dental Screening Dental Screen Date: 01/30/25 Did you have a dental visit in the last 12 months?: Yes Did you have a dental problem in the last 6 months where you did not have access to dental care?: No Was dental information given to patient?: Patient has dentist HPI Follow up on DM HPI Details Patient presents for the follow-up on type 2 diabetes. Patient compl ains of hot flashes and lost 5 lb since last visit. She reports decreased appetite. patient has not been monitoring her blood glucose regularly but has not been following ADA diet eating a lot of bread and pasta PFSH Medical History Asthma Anemia Hyperglycemia Cough Nephrolithiasis Annual physical exam Surgical History Hx of cataract surgery Hx of eye surgery Family History Mother Heart problem Father No problems noted. Social History Housing: House Patient Tobacco Use Status: Never used Tobacco e-Cigarette/Vaping Use: Never Used service: No Current occupational status: employed Cognitive needs: No Hearing needs: No Vision needs: Yes Questionnaire Thrive Questionnaire Date Thrive assessed: 06/25/25 AUDIT C Alcohol Use Questionnaire (AUDIT-C) 1. How often do you have a drink containing alcohol?: Never 3. How often do you have six or more drinks on one occasion?: Never Total Score: 0 RUBEN-7 AMB Questionnaire RUBEN-7 Date RUBEN - 7 assessed: 09/03/24 Source: Developed by Drs. Herb Miranda, Lore Naylor, Beto Charles and colleagues, with an educational negrita from [employer]. Review of Systems Const All systems reviewed & are unremarkable except as noted in HPI and below Eyes Reports no additional complaints ENT Reports no additional complaints Card Reports no additional complaints Resp Reports no additional complaints GI Reports no additional complaints Reports no additional complaints Physical exam (Primary Care) Vital Signs: Last Vital Signs Temp 98.2 F 01/30/25 12:28 Pulse 94 01/30/25 12:28 Resp 18 01/30/25 12:28 BP 114/74 01/30/25 12:28 Pulse Ox 98 01/30/25 12:28 Oxygen Delivery Method Room Air 01/30/25 12:28 BMI result Body Mass Index 19.3 Tobacco/Smoking Status: Tobacco use Status Tobacco use date assessed 01/30/25 01/30/25 12:37 Patient Tobacco Use Status Never used Tobacco 01/30/25 12:37 e-Cigarette/Vaping Use Never Used 01/30/25 12:31 Thrive Assessment: Date of Thrive Assessment Date Thrive assessed 01/30/25 01/30/25 12:31 Const General: no acute distress HENMT Head: Yes normal to inspection Face and sinus: Yes normal facial exam Eyes General: appearance normal, both eyes and all related structures Neck Neck: Yes supple Resp Effort & Inspection: normal respiratory effort Auscultation: clear to auscultation bilaterally Cardio Rhythm: regular rhythm Heart sounds: S1 normal heart sound present and S2 normal heart sound present GI Inspection: Yes normal to inspection Palpation (GI): Soft to palpation Percussion: Yes normal to percussion Auscultation: normal bowel sounds Coding Level of Care Code Est Pt Level 3 (88565) Diagnoses DM type 2 (diabetes mellitus, type 2) E11.9 Anxiety F41.9 Assessment & Plan Assessment & Plan (1) DM type 2 (diabetes mellitus, type 2): Code(s): E11.9 - Type 2 diabetes mellitus without complications Category: Medical Plan: A1c is 7.8, ADA diet increase protein and unsaturated fat intake discussed with the patient. Glipizide 5 mg will be added patient was advised to monitor her blood glucose daily will follow-up in 1 month (2) Anxiety: Code(s): F41.9 - Anxiety disorder, unspecified Category: Medical Plan: Continue Zoloft Medications: New glipizide ER 5 mg PO DAILY 90 tabs 0RF Refilled OneTouch Verio test strips (blood sugar diagnostic) Test blood sugar once a day 100 ea 3RF NS E11.9 - Type 2 diabetes mellitus without complications
[2025-01-30 12:28] VITALS: BP 114/74; PULSE 94; RESP 18; TEMP 36.8; O2SAT 98; BMI 19.3
== END 2025-01-30 12:55 | disposition home or self-care (01) ==
LOC: HO.HMCC 12:26
PROVIDERS: PCP Internal Medicine; Visit Provider Internal Medicine
DX: E11.9 Type 2 diabetes mellitus without complications (principal); F41.9 Anxiety disorder, unspecified

== ENCOUNTER → 2025-01-30 12:25 | Outpatient (BNVA) | payer BC, SELFPAY | PROVIDERS: PCP Internal Medicine; Visit Provider Internal Medicine | DX: Z13.89 Encounter for screening for other disorder (principal) ==

== ENCOUNTER 2025-04-17 11:49 | Outpatient (AMB) | payer BC, SELFPAY ==
--- NOTE | 2025-04-17 11:50 | A.OFFPC_ITS ---
Vital Signs 04/17/25 11:51 Height 5 ft Weight 97 lb BMI 18.9 BP 122/78 Blood Pressure Location Lt brachial Position Sitting Respiration 18 Pulse 89 Pulse Source Pulse Oximeter Temp 98.1 F Temp Source Oral Pulse Oximetry (%) 99 Oxygen Delivery Method Room Air Intake Visit Reasons: Follow up Intake Note: Pt is here today for a follow up visit on DM. Allergies No Known Allergies Allergy (Verified 04/17/25 12:04) Medication List - Last Reconciled 04/17/25 by Aparna Forde MD blood-glucose meter (OneTouch Verio Flex Meter) As directed glipizide ER 5 mg PO DAILY metformin ER 750 mg PO BID OneTouch Delica Plus Lancet (lancets) Test blood sugar once a day NS OneTouch Verio test strips (blood sugar diagnostic) Test blood sugar once a day NS sertraline 50 mg PO DAILY Tobacco use date assessed: 04/17/25 Dental Screening Dental Screen Date: 01/30/25 HPI Follow up HPI Details Pt presents for f/u DM 2. Patient has not been monitoring her blood glucose regularly but reports episodes of hypoglycemia since started taking glipizide especially at night up to twice a week. Patient decrease metformin to once a day. She has not been eating regular meals and occasionally skipping meals at night. Patient has been working 3 different shifts which interrupts with her meals routine. Chronic anxiety is stable on sertraline [facility] Medical History (Updated 04/17/25 @ 15:23 by Aparna Forde MD) DM type 2 (diabetes mellitus, type 2) Asthma Anemia Cough Nephrolithiasis Annual physical exam Surgical History Hx of cataract surgery Hx of eye surgery Family History Mother Heart problem Father No problems noted. Social History Housing: House Patient Tobacco Use Status: Never used Tobacco e-Cigarette/Vaping Use: Never Used service: No Current occupational status: employed Cognitive needs: No Hearing needs: No Vision needs: Yes Questionnaire PHQ-9 Over the last 2 weeks, how often have you been bothered by any of the following problems? 1. Little interest or pleasure in doing things: not at all 2. Feeling down, depressed, or hopeless: not at all 3. Trouble falling or staying asleep, or sleeping too much: not at all 4. Feeling tired or having little energy: not at all 5. Poor appetite or overeating: not at all 6. Feeling bad about yourself - or that you are a failure or have let yourself or your family down: not at all 7. Trouble concentrating on things, such as reading the newspaper or watching television: not at all 8. Moving or speaking so slowly that other people could have noticed. Or the opposite - being so fidgety or restless that you have been moving around a lot more than usual: not at all 9. Thoughts that you would be better off or of hurting yourself in some way: not at all Total score: 0 Depression Screening Interpretation: Negative Depression Screening Done: Yes Source: Developed by Drs. Herb Miranda, Lore Naylor, Beto Charles and colleagues, with an educational negrita from [employer]. Thrive Questionnaire Date Thrive assessed: 01/30/25 RUBEN-7 AMB Questionnaire RUBEN-7 Date RUBEN - 7 assessed: 09/03/24 Feeling nervous, anxious, or on edge: 0 = Not at all Not being able to stop or control worryin = Not at all Worrying too much about different things: 0 = Not at all Trouble relaxin = Not at all Being so restless that it is hard to sit still: 0 = Not at all Becoming easily annoyed or irritable: 0 = Not at all Feeling afraid as if something awful might happen: 0 = Not at all Total RUBEN-7 score (0-4 normal; 5-9 mild; 10-14 moderate; 15-21 severe): 0 Source: Developed by Drs. Herb Miranda, Beto Shea and colleagues, with an educational negrita from [employer]. Review of Systems Const All systems reviewed & are unremarkable except as noted in HPI and below Eyes Reports no additional complaints ENT Reports no additional complaints Card Reports no additional complaints Resp Reports no additional complaints GI Reports no additional complaints Reports no additional complaints Musc Reports no additional complaints Physical exam (Primary Care) Vital Signs: Last Vital Signs Temp 98.1 F 04/17/25 11:51 Pulse 89 04/17/25 11:51 Resp 18 04/17/25 11:51 BP 122/78 04/17/25 11:51 Pulse Ox 99 04/17/25 11:51 Oxygen Delivery Method Room Air 04/17/25 11:51 BMI result Body Mass Index 18.9 Tobacco/Smoking Status: Tobacco use Status Tobacco use date assessed 04/17/25 04/17/25 12:08 Patient Tobacco Use Status Never used Tobacco 04/17/25 11:52 e-Cigarette/Vaping Use Never Used 04/17/25 11:52 PHQ-9: PHQ-9 Score PHQ-9: Total score 0 04/17/25 12:33 Depression Screening Interpretation: Negative Thrive Assessment: Date of Thrive Assessment Date Thrive assessed 01/30/25 04/17/25 11:52 Const General: no acute distress HENMT Head: Yes normal to inspection Ears: hearing grossly normal bilaterally Face and sinus: Yes normal facial exam Mouth: Normal oral and palatal mucosa present Throat: Yes posterior oropharynx normal Eyes General: appearance normal, both eyes and all related structures Neck Neck: Yes no lymphadenopathy and Yes supple Resp Effort & Inspection: normal respiratory effort Auscultation: clear to auscultation bilaterally Cardio Rhythm: regular rhythm Heart sounds: S1 normal heart sound present and S2 normal heart sound present GI Inspection: Yes normal to inspection Palpation (GI): Soft to palpation Percussion: Yes normal to percussion Auscultation: normal bowel sounds Results AMB Hemoglobin A1c AMB Hemoglobin A1c 7.7 % Last Edit by HARINDER De La Cruz on 04/17/25 12:3 3 Results Reviewed Results Reviewed: Laboratory Last Values Hgb A1c (Clinic) 7.7 % (4.0-6.0) H 04/17/25 12:27 Coding Level of Care Code Est Pt Level 4 (84463) Diagnoses Anxiety F41.9 DM type 2 (diabetes mellitus, type 2) E11.9 Assessment & Plan Assessment & Plan (1) Anxiety: Code(s): F41.9 - Anxiety disorder, unspecified Category: Medical Plan: Continue Zoloft (2) DM type 2 (diabetes mellitus, type 2): Code(s): E11.9 - Type 2 diabetes mellitus without complications Category: Medical Plan: ADA diet eating regular well-balanced meals including protein and healthy fats discussed with the patient. She was advised to monitor her blood glucose regularly and have a snack before going to bed. She was advised to increase metformin to twice a day and take glipizide in the mornings, patient will follow-up in 2 months with a fasting labs before Orders: Orders AMB Hemoglobin A1c Today Z13.9 - Encounter for screening, unspecified Comprehensive [place]. Panel Fast 2 Months E11.9 - Type 2 diabetes mellitus without complications, Z00.00 - Encounter for general adult medical examination without abnormal findings Hemoglobin A1c 2 Months E11.9 - Type 2 diabetes mellitus without complications, Z00.00 - Encounter for general adult medical examination without abnormal findings Lipid Panel 2 Months E11.9 - Type 2 diabetes mellitus without complications, Z00.00 - Encounter for general adult medical examination without abnormal findings Microalbumin, Random (w Creat) 2 Months E11.9 - Type 2 diabetes mellitus without complications, Z00.00 - Encounter for general adult medical examination without abnormal findings Medications: Refilled OneTouch Verio test strips (blood sugar diagnostic) Test blood sugar once a day 100 ea 3RF NS E11.9 - Type 2 diabetes mellitus without complications
[2025-04-17 11:51] VITALS: BP 122/78; PULSE 89; RESP 18; TEMP 36.7; O2SAT 99; BMI 18.9
== END 2025-04-17 15:25 | disposition home or self-care (01) ==
LOC: HO.HMCC 11:50
PROVIDERS: PCP Internal Medicine; Visit Provider Internal Medicine
DX: F41.9 Anxiety disorder, unspecified (principal); E11.9 Type 2 diabetes mellitus without complications; Z13.9 Encounter for screening, unspecified

== ENCOUNTER → 2025-04-17 11:49 | Outpatient (BNVA) | payer BC, SELFPAY | PROVIDERS: PCP Internal Medicine; Visit Provider Internal Medicine | DX: E11.9 Type 2 diabetes mellitus without complications (principal); F41.9 Anxiety disorder, unspecified | CPT/HCPCS: 83036; 96127 ==